=== PATIENT | male | born 1940 ===

== ENCOUNTER 2022-09-23 06:48 | Day surgery (SDC) | payer OTHER, SELFPAY ==
[2022-09-23 06:55] VITALS: BP 145/80; PULSE 57; RESP 16; TEMP 36.6; O2SAT 96
[2022-09-23] MEDS: Tropicam./Phenyleph. (1/2.5%) 5 ML BTL OS ×3 (07:04→07:18)
--- NOTE | 2022-09-23 07:41 | ANES.PREOP_ITS ---
General Info Date of Service Date Performed: 09/23/22 Height: 5 ft 10 in Weight: 96.5 kg Body Mass Index (BMI): 30.5 Surgical Procedure: Operation Date: 09/23/22 08:25 Proposed Procedure Side Surgeon p Cataract Extraction with IOL Implant Left Kwesi Harmon MD Meds Allergies and Home Medications Allergies Allergy/AdvReac Type Severity Reaction Status Date / Time No Known Allergies Allergy Unverified 09/23/22 07:01 Home Medication Medication Instructions Recorded amlodipine 5 mg tablet 5 mg PO DAILY 09/22/22 amoxicillin 500 mg tablet 2,000 mg PO DIRECTED 09/22/22 aspirin 81 mg tablet,delayed 81 mg PO DAILY 09/22/22 release atorvastatin 40 mg tablet 40 mg PO QHS 09/22/22 cyclobenzaprine 5 mg tablet 5 - 10 mg PO DIRECTED PRN 09/22/22 diclofenac sodium 1 % topical gel 2 g topical QID 09/22/22 dimenhydrinate 50 mg tablet 50 mg PO TID 09/22/22 (Dramamine) lidocaine 5 % topical patch 1 patch topical DIRECTED 09/22/22 (Lidoderm) losartan 100 mg tablet 100 mg PO DAILY 09/22/22 metoprolol tartrate 50 mg tablet 50 mg PO HS 09/22/22 multivit with min-folic 1 tab PO DAILY 09/22/22 acid-lutein 200 mcg-137.5 mcg chewable tablet (Adult Multivitamin (w-lutein)) omega-3 fatty acids-fish oil 340 1 cap PO DAILY 09/22/22 mg-1,000 mg capsule scopolamine base 1 mg over 3 days 1 patch transdermal Q72H 09/22/22 transdermal patch Current Visit Medications: Current Medications Generic Name Dose Route Start Last Admin Trade Name Freq PRN Reason Stop Dose Admin Acetaminophen 1,000 mg 09/23/22 06:00 Acetaminophen 500 Mg Tab PO 10/23/22 05:59 Q4H PRN PRN Balanced Salt Solution 500 ml 09/23/22 06:00 Balanced Salt Soln.-Plus 500 Ml Bag OP 10/23/22 05:59 DIRECTED [facility] Miscellaneous Medication 0 ml 09/23/22 06:00 Prednisolone 1%, Moxifloxacin 0.5%, Nepafenac 0.1% 5ml Btl OS 10/23/22 05:59 DIRECTED [facility] Miscellaneous Medication 0 ml 09/23/22 06:00 09/23/22 07:18 Tropicam./Phenyleph. 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 Medical History Medical History BPH (benign prostatic hyperplasia) Cataract Coronary artery disease Diabetes mellitus takes no medication Former smoker Hypertension Surgical History Surgical History H/O cardiac catheterization w stenting to RCA in 2018 History of cataract surgery History of colonoscopy History of knee replacement Bilat Tobacco Smoking/Tobacco Use Status: Former Tobacco Use Alcohol Alcohol Intake: never Substance Use Substance use: Never Substance use type: does not use Vital Signs and Lab Results Vital Signs Most Recent Vital Signs in EMR: Most Recent Vital Signs Temp Pulse Resp BP Pulse Ox 36.6 C 57 L 16 145/80 H 96 09/23/22 06:55 09/23/22 06:55 09/23/22 06:55 09/23/22 06:55 09/23/22 06:55 Lab Results Blood Type / Crossmatch: No Data to Display Complete Blood Count: No Data to Display Complete Metabolic Panel: No Data to Display Liver Function Panel: No Data to Display Coagulation Panel: No Data to Display Cardiac Panel: No Data to Display Arterial Blood Gas: No Data to Display Venous Blood Gas: No Data to Display Pancreas Panel: No Data to Display Thyroid Panel: No Data to Display Infectious Disease: No Data to Display Blood Cultures: No Data to Display Toxicology Panel: No Data to Display Anesthesia Assessment and Plan Anesthesia History Personal History: No History of Anesthesia Complications Family History: No Family History of Anesthesia Complications Exercise Tolerance Exercise Tolerance: Metabolic Equivalents>4 Cardiac & Pulmonary Exam Cardiac Exam: Normal S1/S2 Heart Sounds Pulmonary Exam: Clear Bilateral Breath Sounds Implantable Cardiac Device Does patient have a Pacemaker or an ICD?: No Airway Exam Known Difficult Airway: No Mallampati Class: 2 Mouth Opening: Normal (> 3cm) Thyromental Distance: Greater than 3 cm Neck Range of Motion: Full ROM Neck Circumference: Normal Teeth Condition: Removable Dentures/Plates Upper and Removable Dentures/Plates Lower ASA Classification ASA Score: ASA 2 Emergency Case?: No NPO Status NPO Status: NPO Clears >2 hours, Solids >8 hours Anesthesia Plan Resuscitation Status: Full Code Anesthesia Technique: MAC Anesthesia Airway Planned: Natural Airway Monitors Used: Standard Monitors
[2022-09-23 08:24] VITALS: BMI 30.5
[2022-09-23] MEDS: Balanced Salt Soln.-PLUS 500 ML BAG OP (08:30)
[2022-09-23] MEDS: Tetracaine 0.5% 4 ML BTL OS (08:31)
[2022-09-23] MEDS: Lidocaine 1% Pres-Free 5 ML VIAL (08:32)
[2022-09-23] MEDS: Duovisc Viscoelastic System EACH 1 EACH (08:32)
[2022-09-23] MEDS: Phenylephrine/Lidocaine (15/10) MG/ML 1 ML VIAL (08:34)
[2022-09-23] MEDS: Povidone-Iodine Ophth 30 ML BTL (08:35)
[2022-09-23 08:57] VITALS: BP 123/83; PULSE 61; RESP 18; TEMP 36.6; O2SAT 94
--- NOTE | 2022-09-23 08:59 | W.PM.DSUDISC ---
Date of service: 09/23/22 Time of Service: 09:00 Discharge Plan Discharge Details Attending Provider: Kwesi Harmon Primary Care Provider: Unknown,Unknown Home Meds and New Rx's Prescriptions: No Action atorvastatin 40 mg Tablet 40 mg PO QHS aspirin [Aspir-81] 81 mg Tablet,Delayed Release (Dr/Ec) 81 mg PO DAILY amoxicillin 500 mg Tablet 2,000 mg PO DIRECTED dimenhydrinate [Dramamine] 50 mg Tablet 50 mg PO TID lidocaine [Lidoderm] 5 % Adhesive Patch,Medicated 1 patch TOPICAL DIRECTED Rx Instructions: leave on most painful area for up to 12 hrs metoprolol tartrate 50 mg Tablet 50 mg PO HS scopolamine base 1 mg over 3 days Patch 3 Day 1 patch TRANSDERMAL Q72H losartan 100 mg Tablet 100 mg PO DAILY cyclobenzaprine 5 mg Tablet 5 - 10 mg PO DIRECTED PRN Fish Oil 340-1,000 mg Capsule 1 cap PO DAILY diclofenac sodium [Voltaren] 1 % Gel 2 g TOPICAL QID Rx Instructions: apply to single elbow, wrist or hand; for hand includes palm/fingers/back of hand [id number] acid-lutein [Adult Multivitamin (w-lutein)] 200-137.5 mcg Tablet,Chewable 1 tab PO DAILY amlodipine 5 mg Tablet 5 mg PO DAILY Discharge Instructions Stand Alone Forms: Post-op Topical Cataract, Regine Dick (DSU) DS: Diagnosis Discharge Diagnosis (1) Cortical age-related cataract, left eye: Status: Resolved (2) Nuclear age-related cataract, left eye: Status: Resolved
--- NOTE | 2022-09-23 09:00 | W.PM.OP ---
Date of service: 09/23/22 Time of Service: 09:00 Operative Note Operative Note DATE OF PROCEDURE: 09/23/22 PRE-OP DIAGNOSIS: Nuclear/cortical cataract, left eye POST-OP DIAGNOSIS: same PROCEDURE: Cataract extraction using phacoemulsification with intraocular lens implant, left eye SURGEON: Kwesi Harmon ANESTHESIA TYPE: Local By Surgeon and MAC Refer to Anesthesia Record PATHOLOGY: none sent COMPLICATIONS: None Patient was transported to: same day Patient's condition: stable Implants: Satya and Satya Tecnis Eyhance [id number] Indications: Progressive decreased vision due to cataract, left eye Procedure Description: CATARACT SURGERY OPERATIVE REPORT PREOPERATIVE DIAGNOSIS: 1. Nuclear/cortical cataract, left eye POSTOPERATIVE DIAGNOSIS: Same OPERATION: 1. Cataract extraction using phacoemulsification with posterior chamber intraocular lens implant, left eye. IOL: IOL Online Merchandising Coordinator/Model: Satya & Satya Tecnis Eyhance DIB00 IOL Power: + 21.0 diopters IOL Serial Number: [id number] Optic Diameter: 6.0 mm Haptic/Overall Diameter: 13.0 mm PHACO INFO: NormanAeroSurgical Vision System with OZil and Active Fluidics Cumulative Dispersed Energy (CDE): 23.25 seconds SURGEON: Kwesi Harmon MD, MONA ANESTHESIA: Monitored A [facility] (MAC), with local sub-tenon's anesthetic infiltration COMPLICATIONS: None SPECIMENS: None INDICATIONS FOR PROCEDURE: The patient is a 82-year-old gentleman with history of diminished visual acuity in both eyes secondary to the development of bilateral nuclear/cortical cataract. He has already undergone cataract surgery in the right eye and is doing well postoperatively. He now presents for cataract surgery in the left eye. PROCEDURE: The correct surgical eye was identified and marked as the left eye and the pupil was dilated in the preoperative area using mydriatics and cycloplegics. The dilated pupil size was 7.0 mm. Oral sedation was administered in the form of one half of an Imprimis MKO Melt (midazolam 3mg/ketamine 25mg/ondansetron 2mg). The patient was brought to the operating room where cardiopulmonary monitoring was instituted and surgical time-out was performed, confirming the correct operative eye and IOL power. Topical anesthesia was administered and ophthalmic povidone-iodine 5% was instilled into the conjunctival fornices. The brooke-ocular area was prepped with Betadine 10% solution and draped in the usual sterile fashion for intraocular surgery, including an aperture drape. A Tegaderm transparent film dressing was cut in half and used to cover the lashes and lid margins. Care was taken to sequester the lashes and lid margins under the Tegaderm dressing. A lid speculum was placed between the lids of the operative eye and the Norman LuxOR Revalia operating microscope was maneuvered into position. Calin scissors were then used to make a conjunctival buttonhole approximately 6mm posterior to the limbus in the inferonasal quadrant. Blunt dissection was carried out to expose bare sclera, and a blunt-tipped sub-tenon?s anesthesia cannula was introduced and passed posteriorly along the globe where non-preserved plain lidocaine was injected into posterior sub-Tenon?s space. A sideport knife was used to make a paracentesis port. Intraocular phenylephrine/lidocaine was injected int the anterior chamber.. The anterior chamber was filled with viscoelastic. A keratome knife was used to construct a 2-plane near-clear corneal tunnel extending 2.0mm into clear cornea. A flap was raised on the anterior capsule and capsulorhexis forceps were used to complete a continuous curvilinear capsulorhexis of 5.0 mm. Balanced salt solution was then used to perform cortical cleaving hydrodissection and nuclear hydrodelineation until the lens could be freely rotated within the capsular bag. The lens nucleus was then disassembled and removed within the capsular bag and iris plane using phacoemulsification. Residual cortical material was removed using the irrigation/aspiration handpiece. The posterior capsule was carefully polished to remove as much residual lens epithelial cells as safely possible. The capsular bag was then inflated and the anterior chamber deepened with viscoelastic. The lens implant described above was inserted into the capsular bag using the Satya and Satya Simplicity pre-loaded injector. A Kuglen hook was used to dial the IOL into position. Residual viscoelastic was then removed first from posterior to the IOL, then from the anterior chamber using the I/A handpiece. The lens implant was noted to center nicely within the capsular bag. The incisions were stromally hydrated, and the anterior chamber was reformed using BSS. Then 0.5cc of moxifloxacin 1.0mg/ml were injected into the capsular bag and anterior chamber. The incisions were checked with a Weck spear and found to be secure. Several drops of ophthalmic povidone-iodine 5% were then applied to the eye followed by two drops of Imprimis combination prednisolone/moxifloxacin/nepafenac solution. The drapes were removed and a clear plastic protective eye shield was placed over the eye. The patient was then returned to Same Day Surgery in stable condition.
--- NOTE | 2022-09-23 09:05 | W.ANESPOSTOP ---
Postoperative Evaluation Date, Time and Location Date Performed: 09/23/22 Time Performed: 09:05 Patient Location: Day Surgery Unit Vital Signs Most Recent Imported Vital Signs: Most Recent Vital Signs Temp Pulse Resp BP Pulse Ox 36.6 C 57 L 16 145/80 H 96 09/23/22 06:55 09/23/22 06:55 09/23/22 06:55 09/23/22 06:55 09/23/22 06:55 Assessment Mental Status: Awake (Alert & Oriented to Patient Baseline) Airway and Respiratory Function: Patent airway with normal (patient baseline) respiratory exam Cardiovascular Function: Hemodynamically Stable Hydration Status: Adequately Hydrated Nausea & Vomiting: No Nausea or Vomiting Pain: Pt. Denies Any Pain Peripheral Nerve Block: Patient did not receive a nerve block
[2022-09-23 09:21] VITALS: BP 138/73; PULSE 62; RESP 18; TEMP 36.4; O2SAT 96
== END 2022-09-23 09:35 ==
LOC: SUR 06:48
PROVIDERS: Visit Provider Ophthalmology
PROC: (CPT 66984; principal; 2022-09-23 08:15)
DX: H25.012 Cortical age-related cataract, left eye (principal); H25.12 Age-related nuclear cataract, left eye; I10 Essential (primary) hypertension; Z98.41 Cataract extraction status, right eye
CPT/HCPCS: 66984; V2632